=== PATIENT | female | born 1980 | race African-American/Black ===

== ENCOUNTER 2016-10-13 22:27 | Emergency (ER) | payer OTHER ==
[2016-10-13 22:36] VITALS: BP 117/79; PULSE 88; TEMP 97.8; BMI 10.2
--- NOTE | 2016-10-13 22:44 | PDOC ---
History of Present Illness - History of Present Illness Initial Comments: 10/14/16 00:01 The patient is a 35 year old female (LMP: October 01) with a PMHx of hypercholesterolemia who presents to the ED with intense RLQ pain for three days. She reports associated dry mouth, urinary frequency and dizziness. She reports a history of kidney stones. She denies chest pain, SOB, fever, nausea, vomiting, diarrhea. <Bryanna Pate - Last Filed: 10/14/16 00:01> <Marily Wang - Last Filed: 10/14/16 05:49> - General Chief Complaint: Pain Stated Complaint: PAIN Time Seen by Provider: 10/13/16 22:44 Past History <Bryanna Pate - Last Filed: 10/14/16 00:01> - Past Medical History Hypercholesterolemia: Yes - Psycho/Social/Smoking Cessation Hx Suicidal Ideation: No Smoking History: Never smoked <Marily Wang - Last Filed: 10/14/16 05:49> - Past Medical History Allergies/Adverse Reactions: Allergies Allergy/AdvReac Type Severity Reaction Status Date / Time Penicillins Allergy Verified 10/13/16 22:34 Home Medications: Ambulatory Orders Polyethylene Glycol 3350 [Miralax (For Bowel Prep) -] 17 gm PO DAILY #1 bottle 10/14/16 Review of Systems - Review of Systems Comments:: 10/14/16 00:02 GENERAL/CONSTITUTIONAL: +dry mouth. No fever or chills. No weakness. HEAD, EYES, EARS, NOSE AND THROAT: No change in vision. No ear pain or discharge. No sore throat. CARDIOVASCULAR: No chest pain or shortness of breath. RESPIRATORY: No cough, wheezing, or hemoptysis. GASTROINTESTINAL: + RLQ pain. No nausea, vomiting, diarrhea or constipation. GENITOURINARY: + frequency. No dysuria, or change in urination. MUSCULOSKELETAL: No joint or muscle swelling or pain. No neck or back pain. SKIN: No rash NEUROLOGIC: + dizziness. No headache, loss of consciousness, or change in strength/sensation. ENDOCRINE: No increased thirst. No abnormal weight change. HEMATOLOGIC/LYMPHATIC: No anemia, easy bleeding, or history of blood clots. ALLERGIC/IMMUNOLOGIC: No hives or skin allergy. <Bryanna Pate - Last Filed: 10/14/16 00:01> *Physical Exam - Vital Signs Last Vital Signs Temp Pulse Resp BP Pulse Ox 97.8 F 88 18 117/79 99 10/13/16 22:34 10/13/16 22:34 10/13/16 22:34 10/13/16 22:34 10/13/16 22:34 - Physical Exam Comments: 10/14/16 00:03 GENERAL: Awake, alert, and fully oriented, in no acute distress HEAD: No signs of trauma EYES: PERRLA, EOMI, sclera anicteric, conjunctiva clear ENT: Auricles normal inspection, hearing grossly normal, nares patent, oropharynx clear without exudates. Moist mucosa NECK: Normal ROM, supple, no lymphadenopathy, JVD, or masses LUNGS: Breath sounds equal, clear to auscultation bilaterally. No wheezes, and no crackles HEART: Regular rate and rhythm, normal S1 and S2, no murmurs, rubs or gallops ABDOMEN: Soft, nontender, normoactive bowel sounds. No guarding, no rebound. No masses EXTREMITIES: Normal range of motion, no edema. No clubbing or cyanosis. No cords, erythema, or tenderness NEUROLOGICAL: Cranial nerves II through XII grossly intact. Normal speech, normal gait SKIN: Warm, Dry, normal turgor, no rashes or lesions noted. <Bryanna Pate - Last Filed: 10/14/16 00:01> - Vital Signs Last Vital Signs Temp Pulse Resp BP Pulse Ox 97.8 F 88 18 117/79 99 10/13/16 22:34 10/13/16 22:34 10/13/16 22:34 10/13/16 22:34 10/13/16 22:34 <Marily Wang - Last Filed: 10/14/16 05:49> ED Treatment Course - Medications Given in the ED: ED Medications Discontinued Medications Generic Name Dose Route Start Last Admin Trade Name Freq PRN Reason Stop Dose Admin Sodium Chloride 1,000 ml 10/13/16 23:20 10/14/16 00:01 Normal Saline - IV 10/13/16 23:21 1,000 ml ONCE ONE Administration <Bryanna Pate - Last Filed: 10/14/16 00:01> - LABORATORY CBC & Chemistry Diagram: 10/13/16 23:40 10/13/16 23:40 <Marily Wang - Last Filed: 10/14/16 05:49> Medical Decision Making - Medical Decision Making 10/14/16 00:25 Pt comes with dry mouth CP and multiple complaints. Pt fears that she may be diabetic. However all of her blood tests and her urinalysis are normal. 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 10/14/16 05:48 Pt has been reassured and she will follow with her PMD. <Marily Wang - Last Filed: 10/14/16 05:49> *DC/Admit/Observation/Transfer - Attestations Scribe Attestion: 10/14/16 00:03 Documentation prepared by Bryanna Pate, acting as medical numerical control operator for Marily Wang MD. <Bryanna Pate - Last Filed: 10/14/16 00:01> - Discharge Dispostion Admit: No <Marily Wang - Last Filed: 10/14/16 05:49> Diagnosis at time of Disposition: Constipation, Gas - Prescriptions Prescriptions: Polyethylene Glycol 3350 [Miralax (For Bowel Prep) -] 17 gm PO DAILY #1 bottle - Referrals Referrals: Mohamud Layne MD [Primary Care Provider] -
[2016-10-13] MEDS ORDERED: SODIUM CHLORIDE 0.9% 500 ML INFUS.BAG IV ONE (23:20)
[2016-10-14 00:20] LABS: BASOPHIL 0.8 % (0-2.0); EOSINOPHIL 1.3 % (0-4.5); MCH 29.8 pg (25.7-33.7); MCHC 33.1 g/dl (32.0-36.0); MEAN CELL VOLUME 90.1 fl (80-96); MEAN PLT VOLUME 9.5 fl (7.5-11.1); NEUTROPHILS 58.3 % (42.8-82.8); PLATELET COUNT 274 K/MM3 (134-434); RDW 13.4 % (11.6-15.6); WHITE BLOOD COUNT 7.6 K/mm3 (4.0-10.0)
[2016-10-14 00:23] LABS: URINE APPEARANCE CLEAR; URINE BILIRUBIN NEGATIVE (NEGATIVE); URINE COLOR COLORLESS; URINE GLUCOSE (UA) NEGATIVE (NEGATIVE); URINE KETONE NEGATIVE (NEGATIVE); URINE LEUK ESTERASE NEGATIVE (NEGATIVE); URINE NITRITE NEGATIVE (NEGATIVE); URINE PROTEIN NEGATIVE (NEGATIVE); URINE UROBILINOGEN NEGATIVE E.U./dl (0.2-1.0)
[2016-10-14 00:26] LABS: URINE BLOOD 1+ (NEGATIVE)
[2016-10-14 00:31] LABS: INR 1.03 (0.82-1.09); PROTHROMBIN TIME (PATIENT) 11.3 SEC (9.98-11.88)
[2016-10-14 00:35] LABS: URINE BACTERIA RARE /hpf (NONE SEEN); URINE RBC <1 /hpf (0-3); URINE WBC <1 /hpf (3-5)
[2016-10-14 00:41] LABS: ALBUMIN 4.1 g/dl (3.4-5.0); ANION GAP 13 (8-16); BILIRUBIN,TOTAL 0.2 mg/dL (0.2-1.0); CALCIUM 9.5 mg/dL (8.5-10.1); CO2 26 mmol/L (21-32); CREATININE 0.6 mg/dL (0.55-1.02); GLUCOSE,RANDOM 85 mg/dL (74-106); SGOT/AST 10 U/L (15-37); SGPT/ALT 20 U/L (12-78)
[2016-10-14 00:42] LABS: ALK PHOS 73 U/L (45-117)
[2016-10-14] MEDS ORDERED: POLYETHYLENE GLYCOL 3350 119 GM BTL PO ONE (01:04)
== END 2016-10-14 01:36 | disposition home or self-care (01) ==
LOC: JER 22:27
DX: K59.00 Constipation, unspecified (principal)
CPT/HCPCS: 36415; 80053; 81003; 81015; 84703; 85025; 85610; 99283-25

== ENCOUNTER 2016-12-06 23:00 | Emergency (ER) | payer OTHER ==
[2016-12-06 23:09] VITALS: BP 112/90; PULSE 97; TEMP 98; BMI 28.3
--- NOTE | 2016-12-06 23:45 | PDOC ---
History of Present Illness - General Chief Complaint: Palpitations Stated Complaint: HEART PALPITATIONS Time Seen by Provider: 12/06/16 23:44 History Source: Patient - History of Present Illness Initial Comments: 12/07/16 02:38 36-year-old female presents to the emergency department complaining of midsternal nonradiating intermittent 3/10 heart palpitations x8d without extremity numbness or tingling sensation, dizziness, lightheadedness, headaches , nausea/vomiting, fever/chills, neck pains, shortness of breath, abdominal discomfort. Patient states she has similar symptoms 3 years ago and was seen by her PMD. She was informed to keep a log of her symptoms which she did not because the symptoms subsided. 1 week ago, patient started experiencing chest palpitations on and off. The palpitations and touch and it is alleviated at rest. Presenting Symptoms: Chest Pain Timing/Duration: reports: intermittent Past History - Travel Traveled outside of the country in the last 30 days: No Close contact w/someone who was outside of country & ill: No - Past Medical History Allergies/Adverse Reactions: Allergies Allergy/AdvReac Type Severity Reaction Status Date / Time Penicillins Allergy Verified 12/06/16 23:09 Hypercholesterolemia: Yes Kidney Stones: Yes - Psycho/Social/Smoking Cessation Hx Anxiety: No Suicidal Ideation: No Smoking History: Smoker current status UNK Have you smoked in the past 12 months: No Information on smoking cessation initiated: No Hx Alcohol Use: No Drug/Substance Use Hx: No Substance Use Type: None Cardiac Specific PMH - Complaint Specific PMHX Abdominal Aortic Aneurysm: No Review of Systems - Review of Systems Able to Perform ROS?: Yes Comments:: 12/07/16 02:35 CONSTITUTIONAL: Absent: fever, chills, diaphoresis, generalized weakness, malaise, loss of appetite HEENT: Absent: rhinorrhea, nasal congestion, throat pain, throat swelling, difficulty swallowing, mouth swelling, ear pain, eye pain, visual Changes CARDIOVASCULAR: +chest palpitations Absent: chest pain, loss of consciousness, palpitations, irregular heart rate, peripheral edema RESPIRATORY: Absent: cough, shortness of breath, dyspnea with exertion, orthopnea, wheezing, stridor, hemoptysis GASTROINTESTINAL: Absent: abdominal pain, abdominal distension, nausea, vomiting, diarrhea, constipation, melena, hematochezia GENITOURINARY: Absent: dysuria, frequency, urgency, hesitancy, hematuria, flank pain, genital pain MUSCULOSKELETAL: Absent: myalgia, arthralgia, joint swelling SKIN: Absent: rash, itching, pallor HEMATOLOGIC/IMMUNOLOGIC: Absent: easy bleeding, easy bruising, lymphadenopathy, frequent infections ENDOCRINE: Absent: unexplained weight gain, unexplained weight loss, heat intolerance, cold intolerance NEUROLOGIC: Absent: headache, focal weakness or paresthesias, dizziness, unsteady gait, seizure, mental status changes, bladder or bowel incontinence PSYCHIATRIC: Absent: anxiety, depression, suicidal or homicidal ideation, hallucinations. Is the patient limited Tajik proficient: No *Physical Exam - Vital Signs Last Vital Signs Temp Pulse Resp BP Pulse Ox 98.0 F 97 H 20 112/90 99 12/06/16 23:06 12/06/16 23:06 12/06/16 23:06 12/06/16 23:06 12/06/16 23:06 - Physical Exam Comments: 12/07/16 02:35 GENERAL: Well developed, well nourished. Awake and alert. No acute distress. HEENT: Normocephalic, atraumatic. PERRLA, EOMI. No conjunctival pallor. Sclera are non- icteric. Moist mucous membranes. Oropharynx is clear. NECK: Supple. Full ROM. No JVD. Carotid pulses 2+ and symmetric, without bruits. No thyromegaly. No lymphadenopathy. CARDIOVASCULAR: Regular rate and rhythm. No murmurs, rubs, or gallops. Distal pulses are 2+ and symmetric. PULMONARY: No evidence of respiratory distress. Lungs clear to auscultation bilaterally. No wheezing, rales or rhonchi. ABDOMINAL: Soft. Non-tender. Non-distended. No rebound or guarding. No organomegaly. Normoactive bowel sounds. MUSCULOSKELETAL Normal range of motion at all joints. No bony deformities or tenderness. No CVA tenderness. EXTREMITIES: No cyanosis. No clubbing. No edema. No calf tenderness. SKIN: Warm and dry. Normal capillary refill. No rashes. No jaundice. NEUROLOGICAL: Alert, awake, appropriate. Cranial nerves 2-12 intact. No deficits to light touch and temperature in face, upper extremities and lower extremities. No motor deficits in the in face, upper extremities and lower extremities. Normoreflexic in the upper and lower extremities. Normal speech. Toes are down- going bilaterally. Gait is normal without ataxia. PSYCHIATRIC: Cooperative. Good eye contact. Appropriate mood and affect. ED Treatment Course - LABORATORY CBC & Chemistry Diagram: 12/07/16 00:47 12/07/16 00:47 - ADDITIONAL ORDERS Additional order review: Laboratory Results 12/07/16 12/07/16 00:47 00:47 Sodium 138 Potassium 4.4 Chloride 104 Carbon Dioxide 25 Anion Gap 9 BUN 15 D Creatinine 0.8 D Creat Clearance w eGFR > 60 Random Glucose 103 D Calcium 9.2 Total Bilirubin 0.3 D AST 9 L ALT 19 Alkaline Phosphatase 66 Creatine Kinase 64 Troponin I < 0.02 Total Protein 7.4 Albumin 3.7 Urine Color Straw Urine Appearance Clear Urine pH 6.0 Ur Specific [place] 1.013 Urine Protein Negative Urine Glucose (UA) Negative Urine Ketones Trace H Urine Blood 1+ H Urine Nitrite Negative Urine Bilirubin Negative Urine Urobilinogen Negative Ur Leukocyte Esterase Negative Urine RBC 1 Urine WBC 1 Ur Epithelial Cells Rare Hyaline Casts 1 Urine Mucus Rare Urine HCG, Qual Negative 12/07/16 00:47 RBC 4.25 MCV 91.1 MCHC 33.6 RDW 13.4 MPV 9.9 Neutrophils % 65.3 Lymphocytes % 26.4 D Monocytes % 6.5 Eosinophils % 0.9 Basophils % 0.9 *DC/Admit/Observation/Transfer Diagnosis at time of Disposition: Heart palpitations - Discharge Dispostion Disposition: HOME Condition at time of disposition: Guarded Admit: No - Referrals Referrals: Mohamud Layne MD [Primary Care Provider] - Jordy Petersen MD [Staff Physician] - - Patient Instructions Printed Discharge Instructions: DI for Palpitations Additional Instructions: Follow-up with the chief digital media officer within 48 hours. You almost likely need an echocardiogram and possibly Holter monitor. Please discuss the symptoms of your palpitations for the past 8 days but has subsided while in the emergency department. Return back to the ER for severe/persistent or worsening symptoms.
--- NOTE | 2016-12-06 23:46 | PDOC ---
[id number] 99 12/06/16 23:06 12/06/16 23:06 12/06/16 23:06 12/06/16 23:06 12/06/16 23:06 ED Treatment Course - LABORATORY CBC & Chemistry Diagram: 12/07/16 00:47 12/07/16 00:47 Medical Decision Making - Medical Decision Making 12/06/16 23:45 Pt seen by the Advanced Practice Provider under my direct supervision Ancillary studies reviewed I agree with plan as outlined by the Advanced Practice Provider MELISA Fink *DC/Admit/Observation/Transfer Diagnosis at time of Disposition: Heart palpitations - Discharge Dispostion Disposition: HOME Condition at time of disposition: Guarded - Referrals Referrals: Jordy Petersen MD [Staff Physician] - Mohamud Layne MD [Primary Care Provider] - - Patient Instructions Printed Discharge Instructions: DI for Palpitations Additional Instructions: Follow-up with the domestic housekeeper within 48 hours. You almost likely need an echocardiogram and possibly Holter monitor. Please discuss the symptoms of your palpitations for the past 8 days but has subsided while in the emergency department. Return back to the ER for severe/persistent or worsening symptoms.
[2016-12-07 00:54] LABS: BASOPHIL 0.9 % (0-2.0); EOSINOPHIL 0.9 % (0-4.5); MCH 30.6 pg (25.7-33.7); MCHC 33.6 g/dl (32.0-36.0); MEAN CELL VOLUME 91.1 fl (80-96); MEAN PLT VOLUME 9.9 fl (7.5-11.1); NEUTROPHILS 65.3 % (42.8-82.8); PLATELET COUNT 237 K/MM3 (134-434); RDW 13.4 % (11.6-15.6); WHITE BLOOD COUNT 7.5 K/mm3 (4.0-10.0)
[2016-12-07 01:23] LABS: ALBUMIN 3.7 g/dl (3.4-5.0); ANION GAP 9 (8-16); BILIRUBIN,TOTAL 0.3 mg/dL (0.2-1.0); CALCIUM 9.2 mg/dL (8.5-10.1); CO2 25 mmol/L (21-32); CREATININE 0.8 mg/dL (0.55-1.02); GLUCOSE,RANDOM 103 mg/dL (74-106); SGOT/AST 9 U/L (15-37); SGPT/ALT 19 U/L (12-78); TOT PROT 7.4 g/dl (6.4-8.2)
[2016-12-07 01:26] LABS: ALK PHOS 66 U/L (45-117); TROPONIN I < 0.02 ng/ml (0.00-0.05)
[2016-12-07 01:50] LABS: URINE APPEARANCE CLEAR; URINE BILIRUBIN NEGATIVE (NEGATIVE); URINE COLOR STRAW; URINE GLUCOSE (UA) NEGATIVE (NEGATIVE); URINE KETONE TRACE (NEGATIVE); URINE LEUK ESTERASE NEGATIVE (NEGATIVE); URINE NITRITE NEGATIVE (NEGATIVE); URINE PROTEIN NEGATIVE (NEGATIVE); URINE UROBILINOGEN NEGATIVE E.U./dl (0.2-1.0)
[2016-12-07 01:59] LABS: URINE BLOOD 1+ (NEGATIVE)
[2016-12-07 02:03] LABS: URINE HYALINE CAST 1 /lpf; URINE MUCUS RARE; URINE RBC 1 /hpf (0-3); URINE WBC 1 /hpf (3-5)
[2016-12-07 03:18] LABS: THYROID STIMULATING HORMONE 1.82 uIU/ml (0.358-3.74)
--- NOTE | 2016-12-07 18:23 | EKG ---
Test Reason : Blood Pressure : / mmHG Vent. Rate : 089 BPM Atrial Rate : 089 BPM P-R Int : 178 ms QRS Dur : 078 ms QT Int : 360 ms P-R-T Axes : 059 014 025 degrees QTc Int : 438 ms NORMAL SINUS RHYTHM POSSIBLE LEFT ATRIAL ENLARGEMENT BORDERLINE ECG NO PREVIOUS ECGS AVAILABLE BASELINE ARTIFACT Confirmed by TK MACHADO, EVAN ([id number]) on 12/07/2016 6:22:52 PM Referred By: Confirmed By:EVAN FREY MD
== END 2016-12-07 03:02 | disposition home or self-care (01) ==
LOC: JER 23:00
DX: R00.2 Palpitations (principal)
CPT/HCPCS: 36415; 80053; 81003; 81015; 82550; 84443; 84484; 84703; 85025; 93005; 93010; 99284-25

== ENCOUNTER 2018-10-10 14:09 | Emergency (ER) | payer OTHER ==
[2018-10-10 14:16] VITALS: BP 133/79; PULSE 104; TEMP 98.4; BMI 28.0
--- NOTE | 2018-10-10 14:50 | PDOC ---
History of Present Illness - General Chief Complaint: Respiratory Stated Complaint: SOB Time Seen by Provider: 10/10/18 14:29 History Source: Patient Exam Limitations: No Limitations - History of Present Illness Initial Comments: 10/10/18 14:45 HISTORY OF PRESENT ILLNESS: Is a 37-year-old woman presents emergency department for evaluation of moist productive cough for the past 3 weeks. Patient reports she took Mucinex which helped with her cough which has now returned 5 days. Patient reports when she lays down she hears a "crackling" sound with respiration. Patient reports increased upper back pain which worsens with coughing. Patient endorses dyspnea on exertion with a decrease in exercise tolerance to approximately half a block. She denies any abdominal bloating or swelling to her legs. No recent travel or sick contacts. PAST MEDICAL HISTORY: Denies past medical history SURGICAL HISTORY: Denies ALLERGIES: PCN REVIEW OF SYSTEMS General/Constitutional: Denies fever or chills. Denies weakness, weight change. HEENT: Denies change in vision. Denies ear pain or discharge. Denies sore throat. Cardiovascular: Denies chest pain or shortness of breath. Respiratory: see HPI Gastrointestinal: Denies nausea, vomiting, diarrhea or constipation. Denies rectal bleeding. Genitourinary: Denies dysuria, frequency, or change in urination. Musculoskeletal: Denies joint or muscle swelling or pain. Denies neck or back pain. Skin and breasts: Denies rash or easy bruising. Neurologic: Denies headache, vertigo, loss of consciousness, or loss of sensation. Psychiatric: Denies depression or anxiety. Endocrine: Denies increased thirst. Denies abnormal weight change. Hematologic/Lymphatic: Denies anemia, easy bleeding, or history of blood clots. Allergic/Immunologic: Denies hives or skin allergy. Denies latex allergy. PHYSICAL EXAM General Appearance: Well-appearing, appropriately dressed. No apparent distress , no intoxication. HEENT: EOMI, PERRLA, normal ENT inspection, normal voice, TMs normal, pharynx normal. No conjunctival pallor. No photophobia, scleral icterus. Neck: Supple. Trachea midline. No tenderness, rigidity, carotid bruit, stridor , lymphadenopathy, or thyromegaly. Respiratory/Chest: Lungs CTAB. No shortness of breath, chest tenderness, respiratory distress, accessory muscle use. No crackles, rales, rhonchi, stridor , dullness. End expiratory wheezes present. Cardiovascular: RRR. S1, S2. No JVD, murmur, bradycardia, tachycardia. Vascular Pulses: Dorsalis-Pedis (R): 2+, Dorsalis-Pedis (L): 2+ Gastrointestinal/Abdominal: Normal bowel sounds. Abdomen soft, non-distended. No tenderness or rebound tenderness. No organomegaly, pulsatile mass, guarding, hernia, hepatomegaly, splenomegaly. Past History - Past Medical History Allergies/Adverse Reactions: Allergies Allergy/AdvReac Type Severity Reaction Status Date / Time Penicillins Allergy Verified 10/10/18 14:15 Home Medications: Ambulatory Orders Albuterol Sulfate Inhaler - [Ventolin HFA Inhaler -] 2 inh PO Q4H #1 inh Azithromycin [Zithromax Tri-[place] (3 DAYS) -] 500 mg PO DAILY #3 tablet 10/10/18 COPD: No Hypercholesterolemia: Yes Kidney Stones: Yes - Suicide/Smoking/Psychosocial Hx Smoking History: Never smoked Have you smoked in the past 12 months: No Hx Alcohol Use: No Drug/Substance Use Hx: No Substance Use Type: None *Physical Exam - Vital Signs Last Vital Signs Temp Pulse Resp BP Pulse Ox 98.4 F 104 H 20 133/79 98 10/10/18 14:12 10/10/18 14:12 10/10/18 14:12 10/10/18 14:12 10/10/18 14:12 Moderate Sedation - Procedure Monitoring Vital Signs: Procedure Monitoring Vital Signs Temperature 98.4 F 10/10/18 14:12 Pulse Rate 104 H 10/10/18 14:12 Respiratory Rate 20 10/10/18 14:12 Blood Pressure 133/79 10/10/18 14:12 O2 Sat by Pulse Oximetry (%) 98 10/10/18 14:12 ED Treatment Course - RADIOLOGY Radiology Studies Ordered: Category Date Time Status CHEST PA & LAT [RAD] Stat Radiology 10/10/18 14:45 Ordered Medical Decision Making - Medical Decision Making 10/10/18 14:48 A/P: 37-year-old woman moist cough for 3 weeks TMs with retractions noted bilaterally Cobblestoning present in the posterior oropharynx Oropharynx without erythema, lesions or exudates Lungs with scattered end expiratory wheezes present bilaterally. Respirations even and unlabored. Patient is speaking in full sentences. No JVD present S1 and S2 present. Patient is mildly tachycardic with an apical heart rate of 105. No murmur, rub or gallop noted. Abdomen soft nontender nondistended Differential diagnosis includes but is not limited to upper respiratory infection, bronchitis, pneumonia. Chest x-ray Urine DuoNeb's Reassess 10/10/18 15:44 Chest x-rays read by me: Angles clear. Cardiac silhouette is within normal limits. No focal infiltrates or consolidations noted. Repeat lung exam reveals clear lungs. Urine testing is negative. I will discharge the patient home with a prescription for azithromycin and albuterol. Patient has been instructed to follow-up with her primary doctor instructed to return precautions have been provided. *DC/Admit/Observation/Transfer Diagnosis at time of Disposition: Bronchitis - Discharge Dispostion Disposition: HOME Condition at time of disposition: Stable Decision to Admit order: No - Prescriptions Prescriptions: Albuterol Sulfate Inhaler - [Ventolin HFA Inhaler -] 2 inh PO Q4H #1 inh Azithromycin [Zithromax Tri-[place] (3 DAYS) -] 500 mg PO DAILY #3 tablet - Referrals Referrals: Blayne Pak MD [Primary Care Provider] - - Patient Instructions Printed Discharge Instructions: DI for Acute Bronchitis Additional Instructions: Rest, drink lots of fluids: Teas, water, soups, Pedialyte Saltwater gargles Steamy showers/seem to face break up mucus Avoid contact with others until fevers and cough resolved Lots of handwashing and good hygiene Continue [id number] medications for symptomatic relief Tylenol or Motrin for fever and pain Azithromycin 500mg every day for 3 days. Followup with private physician in one to 2 days as needed Return to emergency department for worsened symptoms, fevers, dehydration - Post Discharge Activity
[2018-10-10] MEDS ORDERED: ALBUTEROL SO4 2.5/IPRATROPIUM 0.5 INH SOL 3 ML VIAL.NEB. NEB ONE (14:53)
[2018-10-10] MEDS: ALBUTEROL SO4 2.5/IPRATROPIUM 0.5 INH SOL 3 ML VIAL.NEB. NEB SCH ×4 (14:56→15:55)
[2018-10-10 15:17] LABS: HCG,QUALITATIVE URINE Negative
[2018-10-10 15:24] LABS: URINE APPEARANCE CLEAR; URINE BILIRUBIN NEGATIVE (<2.0 mg/dL); URINE COLOR STRAW; URINE GLUCOSE (UA) NEGATIVE (NEGATIVE); URINE KETONE NEGATIVE (NEGATIVE); URINE LEUK ESTERASE NEGATIVE (NEGATIVE); URINE NITRITE NEGATIVE (NEGATIVE); URINE PROTEIN NEGATIVE (NEGATIVE)
== END 2018-10-10 15:55 | disposition home or self-care (01) ==
LOC: JERFT 14:09
DX: J40 Bronchitis, not specified as acute or chronic (principal)
CPT/HCPCS: 71046-TC-FY; 81003; 84703; 87086; 99281-25